=== PATIENT | male | born 1980 | race Two or more races ===

== ENCOUNTER 2018-08-29 17:12 | Emergency (ER) | payer OTHER ==
[~2018-08-29] VITALS: Ht 188 cm; Wt 108.9 kg
[2018-08-29 17:34] VITALS: BP 117/76
[2018-09-01 09:03] LABS: Hepatitis B Surface Antibody Positive
[2018-09-01 11:04] LABS: Hepatitis B Surface Antigen Negative (Negative)
== END 2018-08-29 18:41 | disposition home or self-care (01) ==
LOC: ER 17:12
DX: H57.11 Ocular pain, right eye (principal); Z77.21 Contact with and (suspected) exposure to potentially hazardous body fluids
CPT/HCPCS: 36415; 86703; 86706; 86803; 87340

== ENCOUNTER → 2018-10-27 | Outpatient (CLI) | payer OTHER | END | disposition home or self-care (01) | LOC: LAB 08:36 | PROVIDERS: ATTEND Nurse Practitioner | DX: Z77.21 Contact with and (suspected) exposure to potentially hazardous body fluids (principal) | CPT/HCPCS: 36415; 86703; 86706; 86803; 87340 ==

== ENCOUNTER → 2019-05-03 | Outpatient (CLI) | payer OTHER ==
[2019-05-04 08:52] LABS: Hepatitis B Surface Antibody Positive
== END | disposition home or self-care (01) ==
LOC: LAB 09:20
PROVIDERS: ATTEND Nurse Practitioner
DX: Z77.21 Contact with and (suspected) exposure to potentially hazardous body fluids (principal)
CPT/HCPCS: 36415; 86703; 86706; 86803; 87340

== ENCOUNTER → 2019-09-06 | Outpatient (CLI) | payer OTHER ==
[2019-09-07 23:48] LABS: Hepatitis B Surface Antibody Positive; Hepatitis B Surface Antigen Negative (Negative)
== END | disposition home or self-care (01) ==
LOC: LAB 10:04
PROVIDERS: ATTEND Nurse Practitioner
DX: Z77.21 Contact with and (suspected) exposure to potentially hazardous body fluids (principal)
CPT/HCPCS: 36415; 86703; 86706; 86803; 87340